=== PATIENT | female | born 1940 | race Caucasian/White ===

== ENCOUNTER 2017-03-05 16:20 | Emergency (ER) | payer MEDICARE, OTHER ==
[~2017-03-05] VITALS: Ht 154.9 cm; Wt 59.0 kg
[~2017-03-05 16:20] MED LIST: DIOVAN; METOPROLOL
[2017-03-05 17:50] LABS: BASOPHILS % 0.6 % (0.0-2.0); EOSINOPHILS % 1.4 % (0.0-5.0); HEMATOCRIT. 40.7 % (36.0-48.0); HEMOGLOBIN. 13.8 g/dL (12.0-16.0); LYMPHOCYTES % 8.9 % (20.0-50.0); MEAN CORPUSCULAR HEMOGLOBIN 29.5 pg (28.0-32.0); MONOCYTES % 6.3 % (2.0-8.0); NEUTROPHILS % 82.8 % (40.0-76.0); PLATELET 214 x1000/uL (130-400); RED BLOOD CELL COUNT 4.67 mill/uL (4.2-5.4); RED CELL DISTRIBUTION WIDTH 13.9 % (11.6-14.6)
[2017-03-05 17:58] LABS: PROTHROMBIN TIME 10.9 sec (9.4-11.6)
[2017-03-05 17:59] LABS: CARBON DIOXIDE 25 mEq/L (21-32); CHLORIDE 107 mEq/L (98-107)
[2017-03-05] MEDS ORDERED: MORPHINE SULFATE 4 MG/ML CPJ (NOT FOR IM USE) IV ONE (19:00)
[2017-03-05] MEDS ORDERED: KETOROLAC 30MG/ML VIAL IV ONE (19:00)
[2017-03-05 19:05] LABS: CLARITY URINE CLEAR (CLEAR); COLOR URINE YELLOW (YELLOW); GLUCOSE URINE NEGATIVE (NEGATIVE); KETONES URINE NEGATIVE (NEGATIVE); LEUKOCYTE ESTERASE URINE NEGATIVE (NEGATIVE); NITRITE URINE NEGATIVE (NEGATIVE); OCCULT BLOOD URINE NEGATIVE (NEGATIVE); PH URINE 7.5 (4.5-8.0); PROTEIN URINE NEGATIVE (NEGATIVE); SPECIFIC GRAVITY URINE 1.016 (1.005-1.030); UROBILINOGEN URINE 0.2 E.U./dL (0.2-1.0)
[2017-03-05] MEDS ORDERED: METOCLOPRAMIDE HCL 10MG/2ML VIAL IV ONE (19:45)
[2017-03-05] MEDS ORDERED: IOHEXOL-300 100 ML BOTTLE ONE (21:28)
[2017-03-05 21:45] VITALS: BP 155/86
== END 2017-03-05 22:01 | disposition home or self-care (01) ==
LOC: ER 19:47
DX: K57.32 Diverticulitis of large intestine without perforation or abscess without bleeding (principal); M79.605 Pain in left leg; M79.604 Pain in right leg; I10 Essential (primary) hypertension; F17.200 Nicotine dependence, unspecified, uncomplicated
CPT/HCPCS: 36415; 74177; 80053; 81003; 83690; 85025; 85610; 96374; 96375; 99285; J1885; J2270; Q9967

== ENCOUNTER 2020-10-01 11:14 | Emergency (ER) | payer MEDICARE ==
[~2020-10-01] VITALS: Ht 154.9 cm; Wt 56.0 kg
[2020-10-01 12:08] LABS: BASOPHILS % 1.2 % (0.0-2.0); EOSINOPHILS % 3.5 % (0.0-5.0); HEMATOCRIT. 44.8 % (36.0-48.0); LYMPHOCYTES % 18.7 % (20.0-50.0); MEAN CORPUSCULAR HEMOGLOBIN 30.1 pg (28.0-32.0); MEAN CORPUSCULAR VOLUME 89.8 fL (81.0-99.0); MEAN PLATELET VOLUME 9.2 fl (7.4-10.4); MONOCYTES % 5.8 % (2.0-8.0); NEUTROPHILS % 70.8 % (40.0-76.0); PLATELET 164 x1000/uL (130-400); RED BLOOD CELL COUNT 4.98 mill/uL (4.2-5.4)
[2020-10-01 12:21] LABS: CHLORIDE 112 mEq/L (98-107)
[2020-10-01 13:06] LABS: CLARITY URINE CLEAR (CLEAR); COLOR URINE YELLOW (YELLOW); KETONES URINE NEGATIVE (NEGATIVE); LEUKOCYTE ESTERASE URINE NEGATIVE (NEGATIVE); NITRITE URINE NEGATIVE (NEGATIVE); OCCULT BLOOD URINE NEGATIVE (NEGATIVE); PROTEIN URINE NEGATIVE (NEGATIVE); SPECIFIC GRAVITY URINE 1.005 (1.005-1.030); UROBILINOGEN URINE 0.2 E.U./dL (0.2-1.0)
[2020-10-01 13:30] VITALS: BP 141/74
== END 2020-10-01 14:06 | disposition home or self-care (01) ==
LOC: ER 11:14
DX: R53.1 Weakness (principal); I10 Essential (primary) hypertension
CPT/HCPCS: 36415; 80053; 81003; 84484; 85025; 93005; 99284

== ENCOUNTER 2021-05-03 09:55 | Emergency (ER) | payer MEDICARE ==
[~2021-05-03] VITALS: Ht 157.5 cm; Wt 68.0 kg
[2021-05-03] MEDS ORDERED: ASPIRIN 81MG TABLET PO ONE (11:00)
[2021-05-03 11:21] LABS: BASOPHILS % 0.3 % (0.0-2.0); EOSINOPHILS % 8.8 % (0.0-5.0); HEMOGLOBIN. 15.1 g/dL (12.0-16.0); LYMPHOCYTES % 22.9 % (20.0-50.0); MEAN CORPUSCULAR VOLUME 89.6 fL (81.0-99.0); MEAN PLATELET VOLUME 9.4 fl (7.4-10.4); MONOCYTES % 6.3 % (2.0-8.0); NEUTROPHILS % 61.7 % (40.0-76.0); PLATELET 182 x1000/uL (130-400); RED BLOOD CELL COUNT 5.02 mill/uL (4.2-5.4); RED CELL DISTRIBUTION WIDTH 13.3 % (11.6-14.6)
[2021-05-03 11:27] LABS: CHLORIDE 109 mEq/L (98-107)
[2021-05-03 15:19] VITALS: BP 120/80
== END 2021-05-03 15:21 | disposition home or self-care (01) ==
LOC: ER 09:55
DX: R07.89 Other chest pain (principal); R42 Dizziness and giddiness; F17.290 Nicotine dependence, other tobacco product, uncomplicated; I10 Essential (primary) hypertension
CPT/HCPCS: 36415; 71045; 80053; 83880; 84484; 85025; 93005; 99285; 99406

== ENCOUNTER 2021-07-25 23:07 | Inpatient (IN) | payer MEDICARE ==
[~2021-07-25] VITALS: Ht 149.9 cm; Wt 54.4 kg
[~2021-07-25 23:07] MED LIST changes: +APIX2.5T MT; +ATOR20TA MT; +DILT120C88 MT; -DIOVAN; -METOPROLOL
[2021-07-26] MEDS ORDERED: DILTIAZEM HCL 5MG/ML 5ML VIAL IV ONE
[2021-07-26 00:22] LABS: BASOPHILS % 1.4 % (0.0-2.0); EOSINOPHILS % 5.1 % (0.0-5.0); HEMATOCRIT. 43.9 % (36.0-48.0); HEMOGLOBIN. 15.1 g/dL (12.0-16.0); MEAN CORPUSCULAR HEMOGLOBIN 30.2 pg (28.0-32.0); MEAN CORPUSCULAR VOLUME 87.7 fL (81.0-99.0); MEAN PLATELET VOLUME 8.9 fl (7.4-10.4); MONOCYTES % 7.1 % (2.0-8.0); NEUTROPHILS % 61.4 % (40.0-76.0); PLATELET 219 x1000/uL (130-400); RED BLOOD CELL COUNT 5.01 mill/uL (4.2-5.4); RED CELL DISTRIBUTION WIDTH 13.8 % (11.6-14.6)
[2021-07-26 00:28] LABS: CHLORIDE 112 mEq/L (98-107)
[2021-07-26] MEDS ORDERED: ASPIRIN 325MG EC TABLET PO ONE (01:00)
[2021-07-26] MEDS ORDERED: DILTIAZEM HCL 30MG TABLET PO ONE (20:30)
[2021-07-26 20:40] VITALS: BP 147/112
[2021-07-26 21:40] VITALS: BP 147/112
[2021-07-26] MEDS: ATORVASTATIN CALCIUM 20MG TABLET PO SCH (22:36)
[2021-07-26] MEDS: APIXABAN 2.5 MG TABLET PO SCH (22:37)
[2021-07-26] MEDS: DILTIAZEM HCL 60MG TABLET PO NR ×2 (22:40→22:43)
[2021-07-26] MEDS ORDERED: DILTIAZEM HCL 120MG TABLET PO SCH (23:00)
[2021-07-26] MEDS ORDERED: DILTIAZEM HCL 90MG TABLET PO SCH (23:15)
[2021-07-27] VITALS: BP 159/75
[2021-07-27 04:00] VITALS: BP 105/77
[2021-07-27 05:28] LABS: BASOPHILS % 1.8 % (0.0-2.0); EOSINOPHILS % 8.2 % (0.0-5.0); HEMATOCRIT. 44.2 % (36.0-48.0); HEMOGLOBIN. 14.7 g/dL (12.0-16.0); MEAN CORPUSCULAR HEMOGLOBIN 29.4 pg (28.0-32.0); MEAN CORPUSCULAR VOLUME 88.4 fL (81.0-99.0); MEAN PLATELET VOLUME 9.3 fl (7.4-10.4); MONOCYTES % 7.6 % (2.0-8.0); NEUTROPHILS % 49.4 % (40.0-76.0); PLATELET 216 x1000/uL (130-400); RED CELL DISTRIBUTION WIDTH 14.2 % (11.6-14.6)
[2021-07-27] MEDS ORDERED: AMLO2.5T45 PO (05:47)
[2021-07-27] MEDS ORDERED: METO-385 PO (05:47)
[2021-07-27 06:17] LABS: CHLORIDE 112 mEq/L (98-107)
[2021-07-27 08:00] VITALS: BP 126/91
[2021-07-27] MEDS: APIXABAN 2.5 MG TABLET PO SCH (08:14)
[2021-07-27] MEDS: METOPROLOL SUCCINATE 50MG ER TABLET PO SCH (08:14)
[2021-07-27] MEDS: DILTIAZEM HCL 120MG CAPSULE CD 24HR PO SCH (08:14)
[2021-07-27 12:00] VITALS: BP 134/77
[2021-07-27 16:00] VITALS: BP 129/79
[2021-07-27 17:52] LABS: CREATINE KINASE 57 IU/L (26-192)
[2021-07-27 20:00] VITALS: BP 127/89
[2021-07-27] MEDS ORDERED: ENOXAPARIN 60MG/0.6ML SYR SUBCUT NR (21:00)
[2021-07-27] MEDS: ATORVASTATIN CALCIUM 20MG TABLET PO SCH (21:57)
[2021-07-28] VITALS: BP 128/74
[2021-07-28 04:00] VITALS: BP 115/79
[2021-07-28 07:25] LABS: BASOPHILS % 1.4 % (0.0-2.0); EOSINOPHILS % 6.8 % (0.0-5.0); HEMATOCRIT. 43.4 % (36.0-48.0); HEMOGLOBIN. 14.3 g/dL (12.0-16.0); LYMPHOCYTES % 25.9 % (20.0-50.0); MEAN CORPUSCULAR HEMOGLOBIN 29.3 pg (28.0-32.0); MEAN CORPUSCULAR VOLUME 88.8 fL (81.0-99.0); MEAN PLATELET VOLUME 9.4 fl (7.4-10.4); MONOCYTES % 7.1 % (2.0-8.0); NEUTROPHILS % 58.8 % (40.0-76.0); PLATELET 192 x1000/uL (130-400); RED BLOOD CELL COUNT 4.89 mill/uL (4.2-5.4); RED CELL DISTRIBUTION WIDTH 14.4 % (11.6-14.6)
[2021-07-28 07:26] LABS: INR 1.1; PARTIAL THROMBOPLASTIN TIME 32.2 sec (23.4-31.0); PROTHROMBIN TIME 11.6 sec (9.6-11.0)
[2021-07-28 07:38] LABS: CHLORIDE 113 mEq/L (98-107)
[2021-07-28 07:47] LABS: CREATINE KINASE 49 IU/L (26-192)
[2021-07-28 08:00] VITALS: BP 141/75
[2021-07-28] MEDS: DILTIAZEM HCL 120MG CAPSULE CD 24HR PO SCH (08:23)
[2021-07-28] MEDS: METOPROLOL SUCCINATE 50MG ER TABLET PO SCH (08:23)
[2021-07-28] MEDS ORDERED: REGADENOSON 0.4 MG/5 ML IV NR (09:30)
[2021-07-28] MEDS ORDERED: REGADENOSON 0.4 MG/5 ML IV ONE (10:33)
[2021-07-28 12:00] VITALS: BP 109/66
[2021-07-28] MEDS ORDERED: APIX2.5T MT (13:56)
[2021-07-28] MEDS ORDERED: METO-385 PO (13:56)
[2021-07-28] MEDS ORDERED: DILT120C88 MT (13:56)
[2021-07-28 13:59] VITALS: BP 109/66
[2021-07-28 16:00] VITALS: BP 113/63
[2021-07-28] MEDS ORDERED: APIXABAN 2.5 MG TABLET PO SCH (17:00)
== END 2021-07-28 17:30 | disposition home or self-care (01) | DRG 310 ==
LOC: ER 23:07 → 5WST 07-26 01:27 → ENRESERV 07-26 19:49
PROVIDERS: ADMIT Internal Medicine; ATTEND Internal Medicine
DX: I48.91 Unspecified atrial fibrillation (principal); E78.5 Hyperlipidemia, unspecified; I10 Essential (primary) hypertension; I35.0 Nonrheumatic aortic (valve) stenosis; Z20.822 Contact with and (suspected) exposure to COVID-19; Z79.01 Long term (current) use of anticoagulants; Z79.899 Other long term (current) drug therapy; Z86.73 Personal history of transient ischemic attack (TIA), and cerebral infarction without residual deficits
CPT/HCPCS: 36415; 71045; 78452; 80048; 80053; 82550; 83735; 83880; 84443; 84484; 85025; 87426; 93005; 93017; 93306; 99291; A9500; J1650; J2785; J3490

== ENCOUNTER 2022-05-26 19:38 | Emergency (ER) | payer MEDICARE ==
[~2022-05-26] VITALS: Ht 154.9 cm; Wt 57.0 kg
[~2022-05-26 19:38] MED LIST changes: +METO-385 PO
[2022-05-26 19:40] VITALS: BP 159/89
== END 2022-05-27 03:00 | disposition left against medical advice (07) ==
LOC: ER 19:44
DX: Z53.21 Procedure and treatment not carried out due to patient leaving prior to being seen by health care provider (principal); I48.91 Unspecified atrial fibrillation; I10 Essential (primary) hypertension; Z86.73 Personal history of transient ischemic attack (TIA), and cerebral infarction without residual deficits
CPT/HCPCS: 93005

== ENCOUNTER 2022-09-01 13:04 | Inpatient (IN) | payer MEDICARE ==
[~2022-09-01] VITALS: Ht 152.4 cm; Wt 55.3 kg
[2022-09-01 14:14] LABS: BASOPHILS % 2.2 % (0.0-2.0); EOSINOPHILS % 6.2 % (0.0-5.0); HEMATOCRIT. 43.4 % (36.0-48.0); HEMOGLOBIN. 14.8 g/dL (12.0-16.0); LYMPHOCYTES % 23.8 % (20.0-50.0); MEAN CORPUSCULAR HEMOGLOBIN 30.4 pg (28.0-32.0); MEAN CORPUSCULAR VOLUME 89.1 fL (81.0-99.0); MEAN PLATELET VOLUME 9.5 fl (7.4-10.4); MONOCYTES % 6.7 % (2.0-8.0); NEUTROPHILS % 61.1 % (40.0-76.0); PLATELET 179 x1000/uL (130-400); RED BLOOD CELL COUNT 4.87 mill/uL (4.2-5.4); RED CELL DISTRIBUTION WIDTH 13.3 % (11.6-14.6)
[2022-09-01 14:24] LABS: INR 1.1; PROTHROMBIN TIME 11.8 sec (9.6-11.0)
[2022-09-01 14:25] LABS: CHLORIDE 110 mEq/L (98-107)
[2022-09-01 17:50] LABS: CLARITY URINE CLEAR (CLEAR); COLOR URINE YELLOW (YELLOW); KETONES URINE NEGATIVE (NEGATIVE); LEUKOCYTE ESTERASE URINE TRACE (NEGATIVE); NITRITE URINE NEGATIVE (NEGATIVE); OCCULT BLOOD URINE 2+ (NEGATIVE); PROTEIN URINE NEGATIVE (NEGATIVE); SPECIFIC GRAVITY URINE 1.011 (1.005-1.030); UROBILINOGEN URINE 0.2 E.U./dL (0.2-1.0)
[2022-09-01] MEDS ORDERED: CEFTRIAXONE 1GM PREMIX 50 ML IV ONE (18:30)
[2022-09-02 08:00] VITALS: BP 160/110
[2022-09-02] MEDS ORDERED: IPRATROPIUM/ALBUTEROL 0.5-3(2.5)MG/3ML NEB HHN PRN (08:15)
[2022-09-02] MEDS ORDERED: ACETAMINOPHEN 325MG TABLET PO PRN (08:15)
[2022-09-02] MEDS ORDERED: ENOXAPARIN 40MG/0.4ML SYR SUBCUT SCH (08:15)
[2022-09-02 08:22] VITALS: BP 160/110
[2022-09-02] MEDS ORDERED: ENOXAPARIN 30MG/0.3ML SYR SUBCUT SCH (09:00)
[2022-09-02] MEDS ORDERED: MORPHINE SULFATE 2 MG/ML CPJ (NOT FOR IM USE) IV SCH (09:30)
[2022-09-02] MEDS ORDERED: REGADENOSON 0.4 MG/5 ML IV NR (10:30)
[2022-09-02] MEDS: APIXABAN 5 MG TABLET PO SCH ×2 (10:40→17:13)
[2022-09-02] MEDS: LOSARTAN POTASSIUM 25 MG TABLET PO SCH (10:40)
[2022-09-02 12:00] VITALS: BP 131/90
[2022-09-02] MEDS: DILTIAZEM HCL 60MG TABLET PO SCH ×2 (12:34→17:32)
[2022-09-02 14:12] LABS: CREATINE KINASE MB FRACTION 1.4 ng/mL (0.5-3.6)
[2022-09-02 16:00] VITALS: BP 100/70
[2022-09-02 16:55] LABS: CREATINE KINASE MB FRACTION 1.2 ng/mL (0.5-3.6)
[2022-09-02 20:00] VITALS: BP 106/59
[2022-09-02] MEDS ORDERED: CEFTRIAXONE 1,000 MG in DEXTROSE 5% WATER 50 ML IV SCH (20:00)
[2022-09-02] MEDS ORDERED: ATORVASTATIN CALCIUM 20MG TABLET PO SCH (21:00)
[2022-09-02 23:39] LABS: CREATINE KINASE MB FRACTION 1.4 ng/mL (0.5-3.6)
[2022-09-03] VITALS: BP 125/81
[2022-09-03] MEDS: DILTIAZEM HCL 60MG TABLET PO SCH ×3 (00:56→14:27)
[2022-09-03 04:00] VITALS: BP 123/91
[2022-09-03 05:29] LABS: BASOPHILS % 1.6 % (0.0-2.0); EOSINOPHILS % 7.9 % (0.0-5.0); HEMATOCRIT. 41.2 % (36.0-48.0); HEMOGLOBIN. 14.4 g/dL (12.0-16.0); LYMPHOCYTES % 36.6 % (20.0-50.0); MEAN CORPUSCULAR HEMOGLOBIN 30.8 pg (28.0-32.0); MEAN CORPUSCULAR VOLUME 88.4 fL (81.0-99.0); MEAN PLATELET VOLUME 10.1 fl (7.4-10.4); MONOCYTES % 6.9 % (2.0-8.0); PLATELET 164 x1000/uL (130-400); RED BLOOD CELL COUNT 4.66 mill/uL (4.2-5.4); RED CELL DISTRIBUTION WIDTH 13.6 % (11.6-14.6)
[2022-09-03 05:44] LABS: CHLORIDE 111 mEq/L (98-107)
[2022-09-03 05:54] LABS: HDL CHOLESTEROL 49 mg/dL (40-59); LDL CHOLESTEROL 62 mg/dL (5-100)
[2022-09-03] MEDS ORDERED: CAFFEINE CITRATE 20MG/ML 3ML VIAL IV ONE (07:27)
[2022-09-03 08:00] VITALS: BP 121/85
[2022-09-03] MEDS: APIXABAN 5 MG TABLET PO SCH (09:00)
[2022-09-03] MEDS: LOSARTAN POTASSIUM 25 MG TABLET PO SCH (09:00)
[2022-09-03] MEDS ORDERED: REGADENOSON 0.4 MG/5 ML IV ONE (09:38)
[2022-09-03 15:16] VITALS: BP 125/79
== END 2022-09-03 18:05 | disposition home or self-care (01) | DRG 206 ==
LOC: ER 14:45 → MICUSO 09-02 02:07 → EDBEDREQTM 09-02 02:55 → EDBEDREQDT 09-02 02:55 → EDBEDREQ 09-02 02:55 → 7WST 09-02 08:19
PROVIDERS: ADMIT Internal Medicine; ATTEND Internal Medicine
DX: M94.0 Chondrocostal junction syndrome [Tietze] (principal); I48.20 Chronic atrial fibrillation, unspecified; N39.0 Urinary tract infection, site not specified; I50.30 Unspecified diastolic (congestive) heart failure; E78.5 Hyperlipidemia, unspecified; F17.290 Nicotine dependence, other tobacco product, uncomplicated; Z79.01 Long term (current) use of anticoagulants; Z86.73 Personal history of transient ischemic attack (TIA), and cerebral infarction without residual deficits; I11.0 Hypertensive heart disease with heart failure
CPT/HCPCS: 36415; 71045; 78452; 80048; 80053; 80061; 81003; 82550; 82553; 83735; 83880; 84484; 85025; 93005; 93017; 93306; 93880; 99285; A9500; J0696; J0706; J2270; J2785; J7060